=== PATIENT | male | born 1990 | race Caucasian/White ===

== ENCOUNTER 2021-03-31 11:14 | Emergency (ER) | payer BC, SELFPAY ==
[2021-03-31 11:30] VITALS: BP 168/102; PULSE 69; RESP 16; TEMP 37; O2SAT 100
--- NOTE | 2021-03-31 12:09 | ED.DENTAL ---
HPI - Dental/Oral General Source: patient Mode of arrival: ambulatory Limitations: no limitations History of Present Illness HPI Narrative: Patient comes in with complaints of toothache in right upper 12 year molar, tooth #1, which is sharp, moderately severe to severe, ongoing for the past 3 days, and preventing him from resting. He says this is also causing him a great deal of discomfort when he eats. He has eaten only soup today. No fever or chills with this. Complaint: tooth pain Onset (ago): day(s) Duration: constant Severity: severe Relieving factors: other (NSAIDs have not helped significantly) Exacerbating factors: chewing Context: history of dental caries Treatment prior to arrival: oral analgesic Related Data Home Medications Medication Instructions Recorded Confirmed albuterol sulfate 2 puff INHALATION PRN PRN 03/31/21 03/31/21 Allergies Allergy/AdvReac Type Severity Reaction Status Date / Time No Known Allergies Allergy Unverified 07/09/15 19:27 Review of Systems Constitutional: Constitutional: Reports no additional constitutional complaints Eyes: Eyes: Reports no additional eye complaints ENT: Reports system reviewed and no additional complaints, except as documented Cardiovascular: Cardiovascular: Reports no additional cardiovascular complaints Respiratory: Respiratory: Reports no additional respiratory complaints Gastrointestinal: Gastrointestinal: Reports no additional gastrointestinal complaints Genitourinary: Genitourinary: Reports no additional male genitourinary complaints Musculoskeletal: Musculoskeletal: Reports no additional musculoskeletal complaints Integumentary/Breasts: Skin/Breast: Reports system reviewed and no additional complaints, except as docu Neurologic: Reports system reviewed and no additional complaints, except as documented Psychiatric: Psychiatric: Reports no additional psychiatric complaints Endocrine: Endocrine: Reports no additional endocrine complaints Hematologic/Lymphatic: Hematologic/Lymphatic: Reports no additional hematologic/lymphatic complaints Allergic/Immunologic: Allergic/Immunologic: Reports no additional allergic/immunologic complaints [facility] Past Medical History Medical History (Updated 04/01/21 @ 00:00 by Background Dauzair) Asthma Nasal polyps No active medical problems Strabismus Surgical History Surgical History (Updated 03/31/21 @ 23:59 by Sigifredo Snow MD) History of strabismus surgery Family History Family History (Updated 04/01/21 @ 00:01 by Sigifredo Snow MD) Mother No significant family history Father No significant family history Social History Social History (Updated 04/01/21 @ 00:01 by Sigifredo Snow MD) Smoking status: Never smoker Alcohol intake: never Substance use: never Exam Const: General: alert Orientation/consciousness: patient oriented x3 HENMT: Ears: external ears normal and TM's normal bilaterally Face and sinus: normal facial exam Mouth: Yes Normal oral and palatal mucosa present Throat: posterior oropharynx normal Other: He appears to have an abscessed tooth at tooth #1, with a distinct red ring around the base of the tooth. The remainder of his mouth exam is negative. Eyes: Conjunctivae: conjunctivae normal Neck: Neck: normal visual inspection and no lymphadenopathy Chest: Chest palpation & inspection: normal inspection of the chest Resp: Effort & Inspection: normal respiratory effort Auscultation: clear to auscultation bilaterally Cardio: Rate: regular rate Rhythm: regular rhythm GI: GI Palp: Yes Soft to palpation (notender) Back/Spine/Pelvis: Back: no CVA tenderness Skin: General skin exam: normal color Neuro: General: patient oriented x3 and moves all extremities Extrem: General: normal to inspection Psych: Appearance: grossly normal Mental Status: mental status grossly normal Thought content: Yes Normal thought content present Course Cours
[2021-03-31] MEDS: PENICILLIN G BENZATHINE 1,200,000 UNITS/2 ML SYRINGE 1200000 UNITS IM (12:20)
[2021-03-31] MEDS: KETOROLAC (*BKC) 60 MG/2 ML VIAL IM (12:22)
[2021-03-31 12:53] VITALS: BP 152/81; PULSE 60; RESP 16; O2SAT 99
== END 2021-03-31 12:55 | disposition home or self-care (01) ==
PROVIDERS: Emergency Provider Emergency Medicine
DX: K04.7 Periapical abscess without sinus (principal)
CPT/HCPCS: 96372; 99283; 99284; J0561; J1885

== ENCOUNTER 2021-04-02 10:51 | Emergency (ER) | payer BC, SELFPAY ==
--- NOTE | ~2021-04-02 | XR_ITS ---
EXAMINATION: XR chest 2V DATE: 04/02/2021 12:55 INDICATION: Cough, headaches and dizziness TECHNIQUE: PA and lateral views of the chest were obtained. COMPARISON: Chest radiograph dated 04/19/2017 FINDINGS: The lungs are now clear with no focal airspace opacities, pulmonary edema, pleural effusion or pneumo thorax. The cardiomediastinal silhouette is normal. Mild kyphosis at the lower thoracic spine with a chronic minimal anterior wedging of a few lower thoracic vertebral bodies. IMPRESSION: 1. No acute cardiopulmonary disease. Reviewed, dictated and finalized at location A.
[2021-04-02 11:06] VITALS: BP 153/99; PULSE 58; RESP 16; TEMP 36.4; O2SAT 100
--- NOTE | 2021-04-02 12:48 | ED.GENADULT ---
HPI - General Adult General Chief complaint: Headache Stated complaint: headache Time Seen by Provider: 04/02/21 12:11 Source: patient History of Present Illness HPI narrative: Patient is a 30 y/o male complaining of generalized headache starting 2 days ago. He describes his headache as both dull and sharp. He rates his headache as 9/10. There is no known alleviating or exacerbating factor. He also has some cough, subjective fever and vomiting. He was seen at [place] for toothache 2 days ago and given prescription for Penicillin and Hydrocodone. He states that his toothache has improved. He has no neck pain or stiffness. Related Data Home Medications Medication Instructions Recorded Confirmed albuterol sulfate 2 puff INHALATION PRN PRN 03/31/21 03/31/21 Allergies Allergy/AdvReac Type Severity Reaction Status Date / Time No Known Allergies Allergy Unverified 07/09/15 19:27 Review of Systems Constitutional: Constitutional: Denies chills, Reports fever(s), Reports headache(s) and Denies weakness Eyes: Eyes: Denies blurry vision ENT: Reports dental pain, Reports headache(s) and Denies neck pain Cardiovascular: Cardiovascular: Denies chest pain and Denies dyspnea Respiratory: Respiratory: Denies cough and Denies dyspnea Gastrointestinal: Gastrointestinal: Denies abdominal pain, Denies diarrhea, Reports nausea and Reports vomiting Genitourinary: Genitourinary: Denies hematuria and Denies dysuria Musculoskeletal: Musculoskeletal: Denies back pain and Denies neck pain Neurologic: Reports headache(s) and Denies weakness PMFSH Past Medical History Medical History Asthma Nasal polyps No active medical problems Strabismus Surgical History Surgical History History of strabismus surgery Family History Family History Mother No significant family history Father No significant family history Social History Social History Smoking status: Never smoker Alcohol intake: never Substance use: never Exam Const: General: no acute distress and well developed Orientation/consciousness: oriented to person, oriented to place, oriented to time and patient oriented x3 HENMT: Head: normocephalic Ears: external ears normal General nose exam: Normal external nose present Eyes: General: appearance normal, both eyes and all related structures Conjunctivae: conjunctivae normal Neck: Neck: normal visual inspection and full ROM Chest: Chest palpation & inspection: normal inspection of the chest and no tenderness Resp: Effort & Inspection: normal respiratory effort Auscultation: clear to auscultation bilaterally Cardio: Rate: regular rate Rhythm: regular rhythm GI: GI Palp: No abdominal tenderness and Yes Soft to palpation Skin: General skin exam: normal color and turgor normal Neuro: General: oriented to person, oriented to place, oriented to time and patient oriented x3 Cranial nerves: Yes CN's II-XII intact bilaterally Cognition (Neuro): normal cognition Speech: normal speech Motor exam (neuro): 5/5 motor strength present throughout Sensory Exam: normal sensation Coordination: [id number] test normal and [id number] test normal Extrem: General: normal to inspection, full ROM and no pedal edema Psych: Appearance: grossly normal Mental Status: mental status grossly normal Affect: normal affect Course Reevaluation(s) Reevaluation #1: Rechecked. Patient states that she feels better and headache is resolved. Date: 04/02/21 Time: 14:18 Vital Signs Vital signs: Vital Signs Temperature 36.4 C 04/02/21 11:06 Pulse Rate 58 L 04/02/21 11:06 Respiratory Rate 16 04/02/21 11:06 Blood Pressure 153/99 H 04/02/21 11:06 Pulse Oximetry 100 04/02/21 11:06 Temperature 36.4 C 04/02
--- NOTE | 2021-04-02 12:53 | PC.NURSE ---
Was seen in outside ED Sun for dental abscess, given IM PCN and on PO PCN, has had headache since then (bilat frontal, blurred vision, N/V). Denies PCN allergy. Hx migraine a year ago
[2021-04-02 12:59] LABS: Basophils Percent Auto 0.4 % (0.2-1.2); Eosinophils Absolute Auto 0.4 K/mm3 (0-0.3); Eosinophils Percent Auto 3.5 % (0-4.4); Hematocrit 45.7 % (42.0-52.0); Hemoglobin 14.8 g/dL (14.0-18.0); Immature Granulocyte Absolute 0.07 K/mm3 (0.00-0.031); Immature Granulocyte Percent A 0.7 % (0-0.5); Lymphocytes Absolute Auto 2.53 K/mm3 (0.9-3.2); Lymphocytes Percent Auto 23.7 % (18.3-44.2); Mean Corpuscular HGB Conc 32.4 g/dl (32-36); Mean Corpuscular Hemoglobin 29.4 pg (26-34); Mean Corpuscular Volume 90.9 fl (80-100); Mean Platelet Volume 9.6 fl (7.4-10.4); Monocytes Absolute Auto 0.9 K/mm3 (0.1-0.6); Monocytes Percent Auto 8.2 % (2.6-8.5); Neutrophils Absolute Auto 6.8 K/mm3 (1.3-6.7); Neutrophils Percent Auto 63.5 % (45.5-73.1); Platelet Count Result 223 k/mm3 (150-375); Red Blood Count 5.03 M/mm3 (4.6-6.20); White Blood Count 10.7 K/mm3 (4.5-10.0)
[2021-04-02 13:01] VITALS: BP 157/97; PULSE 57; RESP 18; O2SAT 95
[2021-04-02 13:15] LABS: Potassium 4.3 mmol/L (3.4-5.0)
[2021-04-02] MEDS: SODIUM CHLORIDE 0.9% IV 1,000 ML 999 ML IV CONT (13:20)
[2021-04-02 13:21] LABS: Anion Gap 4 mmol/L (8-16); Blood Urea Nitrogen 12 mg/dL (9-20); Calcium 9.4 mg/dL (8.4-10.2); Carbon Dioxide 34 mmol/L (22-30); Chloride 103 mmol/L (98-107); Estimated Glomerular Filt Rate > 60; Glucose 89 mg/dL (75-110); Sodium 141 mmol/L (137-145)
[2021-04-02] MEDS: KETOROLAC 30 MG/ML VIAL (*BKC) IV PUSH (13:42)
[2021-04-02] MEDS: diphenhydrAMINE HCl INJ 50 MG/ML VIAL 25 MG IV PUSH (13:43)
[2021-04-02] MEDS: METOCLOPRAMIDE HCL INJ 10 MG/2 ML VIAL IV PUSH (13:43)
[2021-04-02 14:32] VITALS: PULSE 88; RESP 16
== END 2021-04-02 14:33 | disposition home or self-care (01) ==
PROVIDERS: Emergency Provider Emergency Medicine
DX: R51.9 Headache, unspecified (principal); J45.909 Unspecified asthma, uncomplicated
CPT/HCPCS: 36415; 71046; 80048; 85025; 96361; 96374; 96375; 99284; J1200; J1885; J2765; J7030

== ENCOUNTER 2021-07-31 15:37 | Emergency (ER) | payer BC, SELFPAY ==
[2021-07-31 16:03] VITALS: BP 150/77; PULSE 72; RESP 18; TEMP 36.2; O2SAT 99
== END 2021-07-31 19:00 | disposition left against medical advice (07) ==
LOC: ANHED 22:42
PROVIDERS: Emergency Provider Family Medicine
DX: Z53.21 Procedure and treatment not carried out due to patient leaving prior to being seen by health care provider (principal)
CPT/HCPCS: 99199

== ENCOUNTER 2022-03-01 11:18 | Emergency (ER) | payer BC, SELFPAY ==
[2022-03-01 11:38] VITALS: BP 173/97; PULSE 71; RESP 16; TEMP 36.3; O2SAT 97
--- NOTE | 2022-03-01 11:56 | ED.GENADULT ---
HPI - General Adult General Chief complaint: Unspecified Stated complaint: severe allergies mucus sinus pressure Time Seen by Provider: 03/01/22 11:20 Source: patient, RN notes reviewed and old records reviewed Mode of arrival: ambulatory Limitations: no limitations History of Present Illness Onset (ago): day(s) (2) Location: face Severity: mild Severity scale (1-10): 2 Quality: aching and dull Pain Consistency: constant Relieving factors: medication Exacerbating factors: none Associated symptoms: cough Related Data Home Medications Medication Instructions Recorded Confirmed albuterol sulfate 2 puff INHALATION PRN PRN 03/31/21 03/01/22 Allergies Allergy/AdvReac Type Severity Reaction Status Date / Time No Known Allergies Allergy Unverified 03/01/22 11:36 Review of Systems Review of Systems: All systems reviewed & are unremarkable except as noted in HPI and below PMFSH Past Medical History Medical History Asthma Nasal polyps No active medical problems Sinusitis Strabismus Surgical History Surgical History History of strabismus surgery Family History Family History Mother No significant family history Father No significant family history Social History Social History Smoking status: Never smoker Alcohol intake: never Substance use: never Exam Const: General: cooperative, no acute distress and alert Nutritional Appearance: obese Orientation/consciousness: patient oriented x3 Limitations: no limitations HENMT: Head: normal to inspection, normocephalic and atraumatic Ears: hearing grossly normal bilaterally, external ears normal, TM's normal bilaterally and EAC's normal General nose exam: Normal external nose present and Normal nares present Face and sinus: normal facial exam and sinus tenderness Mouth: Yes Normal oral and palatal mucosa present, Yes lip normal, Yes tongue normal, Yes moist mucous membranes and Yes other (hyperemic pharynx.) Teeth and gingiva: dentition normal and gingiva normal Eyes: General: appearance normal, both eyes and all related structures Visual Seymour: normal visual seymour by confrontation Periorbital: periorbital findings normal Eyelids: eyelids normal Conjunctivae: conjunctivae normal Sclera: sclerae normal Cornea: corneas normal Pupils: Equal, round and reactive pupils present EOM: EOMs intact bilaterally Direct Ophthalmoscopy: normal light reflex Neck: Neck: normal visual inspection, full ROM and no lymphadenopathy Chest: Chest palpation & inspection: normal inspection of the chest Resp: Effort & Inspection: normal respiratory effort and able to speak in complete sentences Auscultation: clear to auscultation bilaterally Cardio: Jugular venous distension: no JVD Rate: regular rate Rhythm: regular rhythm GI: Inspection: normal to inspection GI Palp: No abdominal tenderness Auscultation: normal bowel sounds : General: Yes bladder normal to palpation Back/Spine/Pelvis: Back: no CVA tenderness Cervical Spine: cervical ROM normal Thoracic/Lumbar Spine: thoraco-lumbar ROM normal Skin: General skin exam: normal color, no rashes or lesions noted and turgor normal Neuro: General: patient oriented x3 and gait normal Cranial nerves: Yes CN's II-XII intact bilaterally, Yes Facial sensation intact/muscles of mastication intact, Yes Intact sense of smell present, Yes Equal, round and reactive pupils present, Yes Normal accommodation reflex present and Yes Bilaterally intact EOM present Cognition (Neuro): normal cognition Speech: normal speech Gait exam (Neuro): Normal gait present Motor exam (neuro): 5/5 motor strength present throughout Extrem: General: normal to inspection, full ROM and capillary refill normal Psych: Appear
[2022-03-01] MEDS: guaiFENesin 12 HR 600 MG TABCR PO (12:01)
[2022-03-01 12:11] VITALS: BP 155/82; PULSE 64; RESP 16; O2SAT 97
== END 2022-03-01 12:13 | disposition home or self-care (01) ==
PROVIDERS: Emergency Provider Emergency Medicine
DX: J01.41 Acute recurrent pansinusitis (principal)
CPT/HCPCS: 99283; A9270

== ENCOUNTER 2022-05-22 00:57 | Emergency (ER) | payer BC, SELFPAY ==
--- NOTE | ~2022-05-22 | XR_ITS ---
EXAMINATION: XR chest 2V 05/22/2022 02:43 INDICATION: Chest pain with respiration PROCEDURE: 2 view chest COMPARISON: Comparison to multiple prior studies sequentially, with oldest reviewed study dated 03/06 . FINDINGS: The lungs are clear. The cardiomediastinal silhouette is within normal limits. There are no pleural effusions. There is no pneumothorax suspected. IMPRESSION: 1: NO ACUTE CARDIOPULMONARY DISEASE. Reviewed, dictated and finalized at location A.
[2022-05-22 00:57] VITALS: BP 156/84; PULSE 60; RESP 16; TEMP 35.8; O2SAT 96
--- NOTE | 2022-05-22 01:06 | ED.URI ---
HPI - URI/Sore Throat General Chief Complaint: Upper Respiratory Infection Stated Complaint: allergies Time Seen by Provider: 05/22/22 01:06 Source: patient and RN notes reviewed Mode of arrival: ambulatory Limitations: no limitations History of Present Illness MD elicited complaint: cough, sore throat, nasal congestion and sinus pain Pertinent past history: asthma Onset (ago): week(s) (1) Consistency: constant and progressively worsening Severity: moderate Description of mucous: clear Able to tolerate fluids by mouth: Yes Exacerbating factors: exertion and speaking Relieving factors: nothing Associated symptoms: nasal congestion, sore throat, cough and shortness of breath ( Hurts to take a deep breath) Treatments prior to arrival: cold medicine Related Data Home Medications Medication Instructions Recorded Confirmed albuterol sulfate 90 mcg/actuation 2 puff inhalation PRN PRN Wheezing 03/31/21 05/22/22 aerosol inhaler Allergies Allergy/AdvReac Type Severity Reaction Status Date / Time No Known Allergies Allergy Verified 05/22/22 01:04 Review of Systems Review of Systems: All systems reviewed & are unremarkable except as noted in HPI and below Gastrointestinal: Gastrointestinal: Denies diarrhea, Denies nausea and Denies vomiting PMFSH Past Medical History Medical History Asthma Nasal polyps No active medical problems Sinusitis Strabismus Surgical History Surgical History History of strabismus surgery Family History Family History Mother No significant family history Father No significant family history Social History Social History Smoking status: Never smoker Alcohol intake: never Substance use: never Exam Const: General: healthy appearing, no acute distress and alert Nutritional Appearance: well nourished Orientation/consciousness: patient oriented x3 HENMT: Head: normal to inspection Face and sinus: normal facial exam Eyes: Conjunctivae: conjunctivae normal Pupils: Equal, round and reactive pupils present EOM: EOMs intact bilaterally Neck: Neck: normal visual inspection Resp: Effort & Inspection: normal respiratory effort Auscultation: clear to auscultation bilaterally Cardio: Rate: regular rate Rhythm: regular rhythm GI: GI Palp: Yes Soft to palpation and No Tenderness to palpation present (GI) Auscultation: normal bowel sounds Back/Spine/Pelvis: Cervical Spine: cervical ROM normal Thoracic/Lumbar Spine: thoraco-lumbar ROM normal Skin: General skin exam: normal color Rashes: no rashes Neuro: General: patient oriented x3, moves all extremities, no focal motor deficits and CN's II-XI intact bilaterally Speech: normal speech Gait exam (Neuro): Normal gait present Extrem: General: normal to inspection and no clubbing, cyanosis or edema Psych: Mental Status: mental status grossly normal Affect: normal affect Attitude: cooperative Course Vital Signs Vital signs: Vital Signs Temperature 35.8 C L 05/22/22 00:57 Pulse Rate 60 05/22/22 00:57 Respiratory Rate 16 05/22/22 00:57 Blood Pressure 156/84 H 05/22/22 00:57 Pulse Oximetry 96 05/22/22 00:57 Oxygen Delivery Room Air 05/22/22 00:57 Temperature 35.8 C L 05/22/22 00:57 Pulse Rate 80 05/22/22 03:45 Respiratory Rate 16 05/22/22 03:45 Blood Pressure 152/88 H 05/22/22 03:45 Pulse Oximetry 98 05/22/22 03:45 Oxygen Delivery Room Air 05/22/22 03:45 MDM - URI/Sore Throat Lab Data Attestation: I reviewed the patient's lab results. Result diagrams: 05/22/22 01:15 05/22/22 01:15 Labs: Lab Results 05/22/22 05/22/22 05/22/22 Range/Units 01:15 01:15 01:15 WBC 10.8 (4.8-10.8) K/mm3 RBC 4.92 (4.70-6.10) M/mm3 Hgb
[2022-05-22 01:18] LABS: Basophils Absolute Auto 0.03 K/mm3 (0.00-0.10); Basophils Percent Auto 0.3 % (0.0-1.0); Eosinophils Absolute Auto 0.55 K/mm3 (0.02-0.50); Eosinophils Percent Auto 5.1 % (1.0-6.0); Hematocrit 44.7 % (40.0-54.0); Hemoglobin 14.8 g/dL (14.0-18.0); Immature Granulocyte Absolute 0.04 K/mm3 (0.00-0.00); Immature Granulocyte Percent A 0.4 % (0.0-0.0); Lymphocytes Absolute Auto 2.73 K/mm3 (1.10-4.50); Lymphocytes Percent Auto 25.2 % (18.0-42.0); Mean Corpuscular HGB Conc 33.1 g/dL (32.0-36.0); Mean Corpuscular Hemoglobin 30.1 pg (27.0-31.0); Mean Corpuscular Volume 90.9 fL (78.0-102.0); Mean Platelet Volume 9.9 fl (8.7-11.0); Monocytes Absolute Auto 0.84 K/mm3 (0.10-0.90); Monocytes Percent Auto 7.7 % (2.0-11.0); Neutrophils Absolute Auto 6.7 K/mm3 (1.7-7.2); Neutrophils Percent Auto 61.3 % (50.0-70.0); Platelet Count Result 217 K/mm3 (150-420); Red Blood Count 4.92 M/mm3 (4.70-6.10); Red Cell Distribution Width 13.5 % (11.6-14.4); White Blood Count 10.8 K/mm3 (4.8-10.8)
[2022-05-22 01:34] LABS: Alanine Aminotransferase 61 U/L (16-63); Albumin Level 3.7 g/dL (3.4-5.0); Alkaline Phosphatase 93 U/L (46-116); Anion Gap 8 mmol/L (8-16); Aspartate Amino Transferase 31 U/L (15-37); Blood Urea Nitrogen 12 mg/dL (7-18); CRP 1.8 mg/dL (0.0-0.9); Calcium 8.7 mg/dL (8.5-10.1); Carbon Dioxide 30 mmol/L (21-32); Chloride 104 mmol/L (98-108); Estimated CRCL calculation 133 ml/min; Estimated Glomerular Filt Rate > 60; Glucose 101 mg/dL (70-99); Osmolality Calculated 293 mOsm/kg (285-295); Potassium 3.7 mmol/L (3.5-5.1); Sodium 142 mmol/L (136-145); Total Protein 7.7 g/dL (6.4-8.2)
[2022-05-22 01:53] LABS: Influenza A QL RT-PCR Negative (Negative); Influenza B QL RT-PCR Negative (Negative); SARS-CoV-2 RNA PCR Negative (Negative)
[2022-05-22 02:11] VITALS: BP 155/90; PULSE 59; RESP 18; O2SAT 97
[2022-05-22 03:45] VITALS: BP 152/88; PULSE 80; RESP 16; O2SAT 98
[2022-05-22] MEDS: methylPREDNISolone SOD SUCC 125 MG VIAL IM (03:50)
== END 2022-05-22 03:45 | disposition home or self-care (01) ==
PROVIDERS: Emergency Provider Emergency Medicine
DX: J40 Bronchitis, not specified as acute or chronic (principal); J45.21 Mild intermittent asthma with (acute) exacerbation; Z20.822 Contact with and (suspected) exposure to COVID-19
CPT/HCPCS: 36415; 71046; 73140; 80053; 85025; 86140; 87502; 96372; 99283; C9803; J2930; U0003; U0005

== ENCOUNTER 2023-11-20 14:45 | Emergency (ER) | payer BC, SELFPAY ==
--- NOTE | ~2023-11-20 | XR_ITS ---
EXAMINATION: XR chest 1V portable 11/20/2023 15:20 INDICATION: Cough and wheezing PROCEDURE: AP portable chest COMPARISON: 07/09/2015 FINDINGS: The lungs are clear. The cardiomediastinal silhouette is within normal limits. There are no pleural effusions. There is no pneumothorax suspected. IMPRESSION: 1: NO ACUTE CARDIOPULMONARY DISEASE. Reviewed, dictated and finalized at location A. [employer] WELDER
[2023-11-20 14:45] VITALS: BP 155/90; PULSE 72; RESP 20; TEMP 36.6; O2SAT 98
--- NOTE | 2023-11-20 15:06 | ED.GENADULT ---
HPI - General Adult General Chief complaint: Upper Respiratory Infection Stated complaint: cough x 4wks; ear pain Time Seen by Provider: 11/20/23 14:54 History of Present Illness HPI narrative: Nash is a 33M with a PMH of asthma that presented to the ED with a cough of 4 weeks that is not improving. There is no chest pain, N/V, diarrhea, or dyspnea but he has noticed some fevers. Related Data Home Medications Medication Instructions Recorded Confirmed atorvastatin 20 mg tablet 20 mg PO DAILY 11/20/23 11/20/23 montelukast 10 mg tablet 10 mg PO DAILY 11/20/23 11/20/23 Allergies Allergy/AdvReac Type Severity Reaction Status Date / Time No Known Allergies Allergy Verified 11/20/23 14:58 Review of Systems Review of Systems: All systems reviewed & are unremarkable except as noted in HPI and below PMFSH Past Medical History Medical History Asthma Nasal polyps No active medical problems Sinusitis Strabismus Surgical History Surgical History History of strabismus surgery Family History Family History Mother No significant family history Father No significant family history Social History Social History Smoking status: Never smoker Alcohol intake: never Substance use: never Exam Const: General: cooperative, healthy appearing, comfortable, no acute distress, well developed, alert, awake and Physically active Orientation/consciousness: oriented to person, oriented to place and oriented to time HENMT: Head: normal to inspection, normocephalic and atraumatic Ears: hearing grossly normal bilaterally and external ears normal Face/Nose/Sinus: Normal external nose present Eyes: General: appearance normal, both eyes and all related structures Periorbital: periorbital findings normal Sclera: sclerae normal Pupils: Equal, round and reactive pupils present Neck: Neck: normal visual inspection Chest: Chest palpation & inspection: normal inspection of the chest Resp: Effort & Inspection: normal respiratory effort, able to speak in complete sentences and no respiratory distress Other: Diffuse wheezing with prolonged expiratory phase but good air flow Cardio: Jugular venous distension: no JVD Rate: regular rate Rhythm: regular rhythm GI: Inspection: normal to inspection GI Palp: Yes Soft to palpation Auscultation: normal bowel sounds Skin: General skin exam: normal color and no rashes or lesions noted Neuro: General: oriented to person, oriented to place and oriented to time Cranial nerves: Yes Equal, round and reactive pupils present Extrem: General: normal to inspection Course Course Emergency Course: EXAMINATION: XR chest 1V portable 11/20/2023 15:20 INDICATION: Cough and wheezing PROCEDURE:? AP portable chest COMPARISON: 07/09/2015 FINDINGS: The lungs are clear.? The cardiomediastinal silhouette is within normal limits.? There are no pleural effusions.? There is no pneumothorax suspected.? IMPRESSION: 1:? NO ACUTE CARDIOPULMONARY DISEASE. He was coughing less after the breathing treatment. He has adequate albuterol at home. Vital Signs Vital signs: Vital Signs Temperature 97.9 F 11/20/23 14:45 Pulse Rate 72 11/20/23 14:45 Respiratory Rate 20 11/20/23 14:45 Blood Pressure 155/90 H 11/20/23 14:45 Pulse Oximetry 98 11/20/23 14:45 Oxygen Delivery Room Air 11/20/23 14:45 Temperature 97.9 F 11/20/23 14:45 Pulse Rate 70 11/20/23 16:05 Respiratory Rate 16 11/20/23 16:05 Blood Pressure 162/83 H 11/20/23 16:05 Pulse Oximetry 100 11/20/23 16:05 Oxygen Delivery Room Air 11/20/23 16:05 Medical Decision Making Vital Signs Vital Signs: Vital Signs Temperature 97.9 F 11/20/23 14:45 Pulse Rate 72 11/20/23 14:45 Respirato
[2023-11-20 15:08] VITALS: O2SAT 100
[2023-11-20 15:23] VITALS: PULSE 75; RESP 18
[2023-11-20] MEDS: IPRATROPIUM 0.5 MG/ALBUTEROL SULFATE 2.5 MG AMPUL.NEB 3 ML INHALATION (15:23)
[2023-11-20 15:28] VITALS: PULSE 80; RESP 18
[2023-11-20] MEDS: predniSONE 40 MG, predniSONE 10 MG 50 MG PO (15:33)
[2023-11-20 16:05] VITALS: BP 162/83; PULSE 70; RESP 16; TEMP 36.6; O2SAT 100
== END 2023-11-20 16:05 | disposition home or self-care (01) ==
PROVIDERS: Emergency Provider Family Medicine; PCP Family Medicine
DX: J45.901 Unspecified asthma with (acute) exacerbation (principal)
CPT/HCPCS: 71045; 94640; 99283; J7512

== ENCOUNTER 2023-12-14 14:58 | Emergency (ER) | payer BC, SELFPAY ==
--- NOTE | ~2023-12-14 | CT_ITS ---
EXAMINATION: CT abdomen pelvis wo con DATE: 12/14/2023 15:43 INDICATION: Left flank pain. Hematuria. TECHNIQUE: Computed tomography (CT) of the abdomen and pelvis was performed without intravenous contr ast. Automated exposure control and iterative reconstruction technique were employed. The dose-length product was 991.81 mGy-cm. COMPARISON: None. FINDINGS: The visualized portions of the lung bases demonstrate minimal atelectasis. No pleural effus ion. The heart size is normal. No pericardial effusion. There is diffuse hepatic steatosis. There are gallstones in the gallbladder, which is normal in size. The spleen, pancreas, adrenal glands, and ki dneys are normal. There is no urolithiasis. There is a right inguinal hernia containing fat. There ar e no dilated loops of bowel. The appendix is normal. There are no pathologically enlarged lymph nodes . There is no free intraperitoneal fluid. There is mild chronic anterior wedging of multiple vertebra l bodies. There are bridging endplate osteophytes at multiple levels in the thoracic spine, consisten t with diffuse idiopathic skeletal hyperostosis (DISH). There is moderate lumbar spondylosis. IMPRESSION: 1. No etiology for the patient's symptoms. 2. Diffuse hepatic steatosis. 3. Right inguinal hernia containing fat. Reviewed, dictated and finalized at location E. LIANCE REPRESENTATIVE DEALER
[2023-12-14 14:58] VITALS: BP 162/92; PULSE 63; RESP 16; TEMP 36.9; O2SAT 99
--- NOTE | 2023-12-14 15:27 | ED.MALEGU ---
HPI - Male Genitourinary General Chief complaint: Urogenital-Male Stated complaint: left flank pain and blood in urine Source: patient Mode of arrival: ambulatory Limitations: no limitations History of Present Illness HPI Narrative: 33 year old male presents to the Emergency Department complaining of left flank pain and hematuria. Patient states the left flank pain began 4 days ago and has been intermittent. Sometimes pain becomes excruciating. He began having hematuria today. Patient was seen by PCP and recommended he come to the hospital for CT scan. Unable to obtain OP for a week or so. Patient is currently not having flank pain. He has no history of kidney stones or hematuria. MD Complaint: other (hematuria today and intermittent left flank pain x 4 days) Onset (ago): day(s) (4) Duration: intermittent Location: left flank Severity: severe (at times) Relieving factors: none Exacerbating factors: none Associated symptoms: Reports denies other symptoms Related Data Sexually active: Yes Home Medications Medication Instructions Recorded Confirmed atorvastatin 20 mg tablet 20 mg PO DAILY 11/20/23 12/14/23 montelukast 10 mg tablet 10 mg PO DAILY 11/20/23 12/14/23 budesonide-formoterol HFA 160 2 puff inhalation DAILY 12/14/23 12/14/23 mcg-4.5 mcg/actuation aerosol inhaler (Symbicort) Allergies Allergy/AdvReac Type Severity Reaction Status Date / Time No Known Allergies Allergy Verified 12/14/23 15:14 Review of Systems Review of Systems: All systems reviewed & are unremarkable except as noted in HPI and below Constitutional: Constitutional: Reports as per HPI, Reports no additional constitutional complaints, Denies chills and Denies fever(s) Eyes: Eyes: Reports as per HPI ENT: Reports system reviewed and no additional complaints, except as documented Cardiovascular: Cardiovascular: Reports as per HPI Respiratory: Respiratory: Reports as per HPI and Reports no additional respiratory complaints Gastrointestinal: Gastrointestinal: Reports as per HPI and Reports no additional gastrointestinal complaints Genitourinary: Genitourinary: Reports no additional male genitourinary complaints and Reports hematuria Musculoskeletal: Musculoskeletal: Reports no additional musculoskeletal complaints and Reports back pain Neurologic: Reports system reviewed and no additional complaints, except as documented Psychiatric: Psychiatric: Reports no additional psychiatric complaints Endocrine: Endocrine: Reports no additional endocrine complaints Hematologic/Lymphatic: Hematologic/Lymphatic: Reports no additional hematologic/lymphatic complaints Allergic/Immunologic: Allergic/Immunologic: Reports no additional allergic/immunologic complaints [facility] Past Medical History Medical History Asthma Nasal polyps No active medical problems Sinusitis Strabismus Surgical History Surgical History History of strabismus surgery Family History Family History Mother No significant family history Father No significant family history Social History Social History Smoking status: Never smoker Alcohol intake: never Substance use: never Exam Const: General: healthy appearing Nutritional Appearance: well nourished Limitations: no limitations HENMT: Head: normal to inspection Face/Nose/Sinus: Normal external nose present Face and sinus: normal facial exam Teeth and gingiva: dentition normal Eyes: Conjunctivae: conjunctivae normal Pupils: Equal, round and reactive pupils present EOM: EOMs intact bilaterally Direct Ophthalmoscopy: no photophobia Neck: Neck: normal visual inspection Chest: Chest palpation & inspection: normal inspection of the chest Resp: Effort & Inspection: normal respirat
[2023-12-14 16:08] LABS: Appearance Urine Cloudy (Clear); Bilirubin Urine Negative (Negative); Blood Urine 3+ (Negative); Color Urine Brown (Yellow); Glucose Urine UA Negative (Negative); Ketones Urine Negative (Negative); Leukocyte Esterase Ur Negative (Negative); Nitrate Urine Negative (Negative); Protein Urine 1+ (Negative); Specific Grav Ur >= 1.030 (1.010-1.020); pH Urine 5.5 (5.0-8.0)
--- NOTE | 2023-12-14 16:11 | PC.NURSE ---
PT IS SITTING ON STRETCHER PLAYING A GAME ON HIS PHONE. NAD NOTED. PT DENIES ANY NEEDS OR COMPLAINTS. PT IS AWAITING RESULTS. WILL CONTINUE TO MONITOR.
[2023-12-14 16:12] LABS: Add Urine Microscopic? YES; Bacteria Urine Trace /hpf; RBC Urine >75 /hpf (0-2); WBC Urine None seen /hpf (0-3)
[2023-12-14 16:22] VITALS: BP 148/72; PULSE 60; RESP 18; O2SAT 100
== END 2023-12-14 16:25 | disposition home or self-care (01) ==
PROVIDERS: Emergency Provider Emergency Medicine; PCP Family Medicine
DX: R31.9 Hematuria, unspecified (principal); J45.909 Unspecified asthma, uncomplicated; Z79.899 Other long term (current) drug therapy
CPT/HCPCS: 74176; 81001; 99284

== ENCOUNTER 2025-07-30 11:57 | Emergency (ER) | payer BC, SELFPAY ==
[2025-07-30] VITALS (11 sets, daily range): BP systolic 114–164; BP diastolic 76–84; PULSE 57–72; RESP 16–18; TEMP 36.2; O2SAT 96–100
--- NOTE | ~2025-07-30 | XR_ITS ---
EXAMINATION: XR chest 1V portable, 07/30/2025 12:15 CDT HISTORY: RIGHT SIDE CP X 3 WEEKS COMPARISON: No comparisons available. Technique: Single view. Findings: The lungs are clear, no effusion. No pneumothorax. Heart is normal size. Mediastinal and hilar contours are within normal limits. Bony thorax no acute abnormality. Impression: No acute cardiopulmonary abnormality. Reviewed, dictated and finalized at location A. Impression: No acute cardiopulmonary abnormality.
--- NOTE | 2025-07-30 11:58 | ECG_ITS ---
Test Date: 2025-07-30 12:05:28 Measurements Intervals [place] Rate: 58 P: 12 ND: 177 QRS: 33 QRSD: 89 T: 120 QT: 408 QTc: 402 Interpretive Statements SINUS BRADYCARDIA MODERATE T-WAVE ABNORMALITY, CONSIDER LATERAL ISCHEMIA [-0.1+ mV T-WAVE IN I/aVL/V5/V6] No previous ECG available for comparison Electronically Signed On 07-30-2025 16:07:40 CDT by Dwayne Wellington M.D.
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
--- OUTSIDE RECORDS SUMMARY | 2025-07-30 12:00 | XMS_ITS | Encounter Summary ---
Author Organization [facility] Address [address] [place] [address] Care Team Providers Care Education Teacher Name Role Phone Non-Staff, Provider Primary Care Provider Eren Hernandez MD Primary Care Provider [phone] Encounter Details Date Type Department Care Team (Late st Contact Info) Description 04/30/2019 Abstract SFL CONVERSION [address] [place] [address] , Generic Conversion, Social History Tobacco Use Types Packs/Day Years Used Date Smoking Tobacco: Never Assessed Sex and Gender Information Value Date Recorded Sex Assigned at Not on file 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 Gender Identity Male 05/19/2025 1:03 PM CDT Sexual Orientation Straight 05/19/2025 1: 03 PM CDT documented as of this encounter Plan of Treatment Not on file documented as of this encounter Visit Diagnoses Not on filedocumented in this encounter Additional Health Concerns Infection Onset Date Last Indicated Resolved Time COVID-19 Rule Out 09/10/2020 09/10/2020 09/11/2020 4:20 PM CDT documented as of this encounter Care Teams Education Teacher Relationship Specialty Start Date End Date Non-Staff, Provider PCP - General OTOLARYNGOLOGY 09/10/20 12/07/22 Eren Pulido MD [address] [place] [phone] PCP - General FAMILY PRACTICE 12/08/22 documented as of this encounter
--- OUTSIDE RECORDS SUMMARY | 2025-07-30 12:00 | XMS_ITS | Patient Health Record ---
Author Organization [facility], Address [address] [place] [address] Care Team Providers Care Die Sinker Name Role Phone Baldemar Fulton Unavailable [phone] ALLERGIES No Known Allergies REASON FOR REFERRAL No Information MEDICATIONS Medication SIG (Take, Route, Fr equency, Duration) Notes Start Date End Date Status Medrol (Hilario) 4mg as directed on the p ackage orally as directed on the package 08/30/2021 Activ e Inhaler Companions A ctive Allergy Active PLAN OF TREATMENT No Information Insurance Providers Payer Name Payer Address Payer Phone Subscriber Number Group Number Insured Name Patient Relationship to Insured Coverage Start Date Coverage End Date Lien [id number] Jorge Prince Self - patient is the insured MEDICAL (GENERAL) HISTORY Surgical History Surgery Date(Month/Year) Eye surgery Sinus surgery
--- NOTE | 2025-07-30 12:15 | ED.GENADULT ---
HPI - General Adult General Chief complaint: Chest Pain Stated complaint: chest pain History of Present Illness HPI narrative: Nash is a previously healthy 35M that presented to the ED with right sided chest pain for 3 days. It started while he was watering plants while at work at [employer]. It is a sharp left sided stabbing pain worse with inspiration. No lightheadedness, vomiting or dyspnea. Related Data Home Medications ?Medication ?Instructions ?Recorded ?Confirmed ?Last Taken ?Type budesonide-formoterol HFA 160 2 puff inhalation DAILY 12/14/23 12/14/23 Unknown History mcg-4.5 mcg/actuation aerosol inhaler (Symbicort) Allergies Allergy/AdvReac Type Severity Reaction Status Date / Time bee venom protein (honey bee) Allergy Intermediate Anaphylaxis Verified 07/30/25 12:36 Review of Systems Review of Systems: All systems reviewed & are unremarkable except as noted in HPI and below PMFSH Past Medical History Medical History Sinusitis Nasal polyps Strabismus Asthma No active medical problems Surgical History Surgical History History of strabismus surgery Family History Family History Mother No significant family history Father No significant family history Social History Social History Smoking status: Never smoker Alcohol intake: never Substance use: never Exam Const: General: cooperative, healthy appearing, comfortable, no acute distress, well developed, alert, awake and Physically active Orientation/consciousness: oriented to person, oriented to place and oriented to time HENMT: Head: normal to inspection, normocephalic and atraumatic Ears: hearing grossly normal bilaterally and external ears normal Face/Nose/Sinus: Normal external nose present Eyes: General: appearance normal, both eyes and all related structures Periorbital: periorbital findings normal Sclera: sclerae normal Pupils: Equal, round and reactive pupils present Neck: Neck: normal visual inspection Chest: Chest palpation & inspection: normal inspection of the chest Other: Right anterior chest TTP Resp: Effort & Inspection: normal respiratory effort, able to speak in complete sentences and no respiratory distress Auscultation: clear to auscultation bilaterally Cardio: Jugular venous distension: no JVD Rate: regular rate Rhythm: regular rhythm Skin: General skin exam: normal color and no rashes or lesions noted Neuro: General: oriented to person, oriented to place and oriented to time Cranial nerves: Yes Equal, round and reactive pupils present Extrem: General: normal to inspection Course Course Emergency Course: EKG showed NSR with a rate of 58, and nonspecific T wave abnormalities in the lateral leads but no ST elevation/depression Labs largely unremarkable. As CP has been present for 3 days but troponin is normal it is unlikely to be cardiac. EXAMINATION: XR chest 1V portable, 07/30/2025 12:15 CDT HISTORY: RIGHT SIDE CP X 3 WEEKS COMPARISON: No comparisons available. Technique: Single view. Findings: The lungs are clear, no effusion. No pneumothorax. Heart is normal size. Mediastinal and hilar contours are within normal limits. Bony thorax no acute abnormality. Impression: No acute cardiopulmonary abnormality. Vital Signs Vital signs: Vital Signs Temperature 97.1 F L 07/30/25 11:57 Pulse Rate 64 07/30/25 11:57 Respiratory Rate 16 07/30/25 11:57 Blood Pressure 158/83 H 07/30/25 11:57 Pulse Oximetry 97 07/30/25 11:57 Oxygen Delivery Room Air 07/30/25 11:57 Temperature 97.1 F L 07/30/25 11:57 Pulse Rate 64 07/30/25 11:57 Respiratory Rate 16 07/30/25 11:57 Blood Pressure 158/83 H 07/30/25 11:57 Pulse Oximetry 97 07/30/25 11:57 Oxygen Delivery Room Air 07/30/25 11:57 Medical Decision Making Vital Signs Vital Signs: Vital Signs Temperature 97.1 F L 07/30/25 11:57 Pulse Rate 64 07/30/25 11:57 Respiratory Rate 16 07/30/25 11:57 Blood Pressure 158/83 H 07/30/25 11:57 Pulse Oximetry 97 07/30/25 11:57 Oxygen Delivery Room Air 07/30/25 11:57 Temperature 97.1 F L 07/30/25 11:57 Pulse Rate 64 07/30/25 11:57 Respiratory Rate 16 07/30/25 11:57 Blood Pressure 158/83 H 07/30/25 11:57 Pulse Oximetry 97 07/30/25 11:57 Oxygen Delivery Room Air 07/30/25 11:57 Discharge Plan Discharge Clinical Impression: Acute costochondritis Patient Disposition: Home Condition: Stable Instructions: Costochondritis (ED) Patient Language: Pashto Prescriptions: New meloxicam 7.5 mg tablet 7.5 mg PO DAILY Qty: 10 0RF No Action budesonide-formoterol [Symbicort] 160-4.5 mcg/actuation HFA aerosol inhaler 2 puff INHALATION DAILY Follow-up/Referrals: Jaylan Xavier MD [Physician, Internal Medicine]
[2025-07-30 12:23] LABS: Hematocrit 42.4 % (40.0-54.0); Hemoglobin 13.5 g/dL (14.0-18.0); Immature Granulocyte Percent A 0.7 % (0.0-0.0); Lymphocytes Absolute Auto 2.52 K/mm3 (1.10-4.50); Mean Corpuscular HGB Conc 31.8 g/dL (32-36); Mean Corpuscular Hemoglobin 29.1 pg (27.0-31.0); Mean Corpuscular Volume 91.4 fL (78.0-102.0); Nucleated Red Blood Cells Absolute Auto 0.00 K/mm3 (0.00-0.00); Nucleated Red Blood Cells Perc 0.0 % (0-0.0); Platelet Count Result 220 K/mm3 (150-420); Red Blood Count 4.64 M/mm3 (4.70-6.10); White Blood Count 9.6 K/mm3 (4.8-10.8)
[2025-07-30] MEDS: ASPIRIN 81 MG CHEWABLE TABLET 324 MG PO (12:30)
[2025-07-30 12:32] LABS: Anion Gap 9 mmol/L (4-12); Blood Urea Nitrogen 9 mg/dL (9-20); Calcium 9.4 mg/dL (8.4-10.2); Carbon Dioxide 33 mmol/L (22-30); Chloride 100 mmol/L (98-107); Estimated CRCL calculation 167 ml/min; Estimated Glomerular Filt Rate > 60; Glucose 309 mg/dL (65-110); Lipase 67 U/L (23-300); Osmolality Calculated 304 mOsm/kg (285-295); Potassium 4.4 mmol/L (3.4-5.0); Sodium 142 mmol/L (137-145)
[2025-07-30 12:33] LABS: INR 1.0; Prothrombin Time 10.9 Seconds (9.50-12.1)
--- OUTSIDE RECORDS SUMMARY | 2025-07-30 12:37 | XMS_ITS | Clinical Summary ---
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 [address] DATE: 05/19/2025 4:01 PM INDICATION: Low back [...] Procedure Note Qasim Friend MD - 05/19/[address] [place] [address] DATE: 05/19/2025 4:01 PM INDICATION: Low back [...] COLOR (U) YELLOW 05/19/2025 4:02 PM CDT [facility] TRANSPARENCY SLIGHTLY CLOUDY 05/19/2025 4:02 PM CDT [facility] SPECIFIC GRAVITY (U) 1.030(H) 1.000 - 1.025 05/19/2025 4:02 PM CDT [facility] Comment:EQUAL TO OR GREATER THAN U PH 5.5 5.0 - 8.0 05/19/2025 4:02 PM CDT [facility] LEUKOCYTES (U) NEGATIVE NEGATIVE 05/19/2025 4:02 PM CDT [facility] NITRITES NEGATIVE NEGATIVE 05/19/2025 4:02 PM CDT [facility] PROTEIN RANDOM (U) 1+(A) NEGATIVE 05/19/2025 4:02 PM CDT [facility] GLUCOSE (U) TRACE(A) NEGATIVE 05/19/2025 4:02 PM CDT [facility] KETONES MG/DL (U) NEGATIVE NEGATIVE 05/19/2025 4:02 PM CDT [facility] UROBILINOGEN 1.0(H) <1.0 EU/DL 05/19/2025 4:02 PM CDT [facility] BILIRUBIN (U) NEGATIVE NEGATIVE 05/19/2025 4:02 PM CDT [facility] BLOOD (U) NEGATIVE NEGATIVE 05/19/2025 4:02 PM CDT [facility] WBC/HPF 0-5 0 - 5 /HPF 05/19/2025 4:02 PM CDT [facility] BACTERIA (U) 1+ /HPF 05/19/2025 4:02 PM CDT [facility] MUCUS PRESENT 05/19/2025 4:02 PM CDT [facility] OTHER CASTS (U) HYALINE /LPF 4:02 PM CDT [facility] Comment:20-50 URINE SPECIMEN OBTAINED BY CLEAN CATCH PROCEDURE / Unknown 05/19/2025 3:45 PM CDT Solitario Urena DO URINE ORDERABLES Final Result [facility] [address] [place] [address], from Last 3 Months Insurance [facility] C/O PROVIDER SERVICES HERMINIO GARY [id number] [employer] Advance Directives Documents on File Type Date Recorded Patient Circulating Nurse Expl anation Legal Documents 09/03/2021 6:20 AM RECVD & CMPLTD ATTY REQ. FOR HB BILLS FOR SFL FOR AUNDREA LAW Care Teams Instrumentation And Controls Designer Relationship Specialty Start Date End Date Eren Pulido MD [address] [place] [phone] PCP - General FAMILY PRACTICE 12/08/22
--- OUTSIDE RECORDS SUMMARY | 2025-07-30 12:37 | XMS_ITS | Encounter Summary ---
Author Organization [facility] - [facility] Address [address] [place] [address] Care Team Providers Care Furniture Detailer Name Role Phone Non-Staff, Provider Primary Care Provider Eren Hernandez MD Primary Care Provider Encounter Details Date Type Department Care Team (Late st Contact Info) Description 04/30/2019 Abstract SFL CONVERSION [address] [place] [address] , Generic Conversion, Social History Tobacco Use Types Packs/Day Years Used Date Smoking Tobacco: Never Assessed Sex and Gender Information Value Date Recorded Sex Assigned at Not on file 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
[2025-07-30 12:44] LABS: Troponin I < 0.012 ng/mL (0.000-0.034)
== END 2025-07-30 13:00 | disposition home or self-care (01) ==
PROVIDERS: Emergency Provider Family Medicine; PCP Registered Nurse
DX: M94.0 Chondrocostal junction syndrome [Tietze] (principal)
CPT/HCPCS: 36415; 71045; 80048; 83690; 84484; 85025; 85610; 93005; 99284; A9270

== ENCOUNTER 2025-08-05 20:49 | Emergency (ER) | payer BC, SELFPAY ==
--- NOTE | ~2025-08-05 | XR_ITS ---
EXAMINATION: XR chest 1V portable COMPARISON: No comparisons available. HISTORY: CHEST CONGESTION, ASTHMA FINDINGS: The lungs are clear, no effusion. No pneumothorax. Heart is normal size. Mediastinal and hilar contours are within normal limits. Bony thorax no acute abnormality. Miscellaneous: None Impression: No acute cardiopulmonary abnormality. Reviewed, dictated and finalized at location A. Impression: No acute cardiopulmonary abnormality.
[2025-08-05 20:49] VITALS: BP 165/63; PULSE 72; RESP 18; TEMP 36.5; O2SAT 96
--- OUTSIDE RECORDS SUMMARY | 2025-08-05 20:51 | XMS_ITS | Encounter Summary ---
Author Organization [facility] - [facility] Address [address] [place] [address] Care Team Providers Care Mold Shifter Name Role Phone Non-Staff, Provider Primary Care Provider Eren Hernandez MD Primary Care Provider Encounter Details Date Type Department Care Team (Late st Contact Info) Description 04/30/2019 Abstract SFL CONVERSION [address] [place] [address] , Generic Conversion, Social History Tobacco Use Types Packs/Day Years Used Date Smoking Tobacco: Never Assessed Sex and Gender Information Value Date Recorded Sex Assigned at Not on file Legal Sex Male 5:[address] Gender Identity Male 05/19/2025 1:03 PM CDT [...] documented as of this encounter Care Teams Mold Shifter Relationship Specialty Start Date End Date Non-Staff, Provider PCP - General OTOLARYNGOLOGY 09/10/20 12/07/22 Eren Pulido MD [address] [place] [phone] PCP - General FAMILY PRACTICE 12/08/22 documented as of this encounter
--- OUTSIDE RECORDS SUMMARY | 2025-08-05 20:51 | XMS_ITS | Clinical Summary ---
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 [address] DATE: 05/19/2025 4:01 PM INDICATION: Low back [...] Procedure Note Qasim Friend MD - 05/19/[address] [place] [address] DATE: 05/19/2025 4:01 PM INDICATION: Low back [...] COLOR (U) YELLOW 05/19/2025 4:02 PM CDT [facility] TRANSPARENCY SLIGHTLY CLOUDY 05/19/2025 4:02 PM CDT [facility] SPECIFIC GRAVITY (U) 1.030(H) 1.000 - 1.025 05/19/2025 4:02 PM CDT [facility] Comment:EQUAL TO OR GREATER THAN U PH 5.5 5.0 - 8.0 05/19/2025 4:02 PM CDT [facility] LEUKOCYTES (U) NEGATIVE NEGATIVE 05/19/2025 4:02 PM CDT [facility] NITRITES NEGATIVE NEGATIVE 05/19/2025 4:02 PM CDT [facility] PROTEIN RANDOM (U) 1+(A) NEGATIVE 05/19/2025 4:02 PM CDT [facility] GLUCOSE (U) TRACE(A) NEGATIVE 05/19/2025 4:02 PM CDT [facility] KETONES MG/DL (U) NEGATIVE NEGATIVE 05/19/2025 4:02 PM CDT [facility] UROBILINOGEN 1.0(H) <1.0 EU/DL 05/19/2025 4:02 PM CDT [facility] BILIRUBIN (U) NEGATIVE NEGATIVE 05/19/2025 4:02 PM CDT [facility] BLOOD (U) NEGATIVE NEGATIVE 05/19/2025 4:02 PM CDT [facility] WBC/HPF 0-5 0 - 5 /HPF 05/19/2025 4:02 PM CDT [facility] BACTERIA (U) 1+ /HPF 05/19/2025 4:02 PM CDT [facility] MUCUS PRESENT 05/19/2025 4:02 PM CDT [facility] OTHER CASTS (U) HYALINE /LPF 4:02 PM CDT [facility] Comment:20-50 URINE SPECIMEN OBTAINED BY CLEAN CATCH PROCEDURE / Unknown 05/19/2025 3:45 PM CDT Solitario Urena DO URINE ORDERABLES Final Result [facility] [address] [place] [address], from Last 3 Months Insurance [facility] C/O PROVIDER SERVICES HERMINIO GARY [id number] [employer] Advance Directives Documents on File Type Date Recorded Patient Transition Program Manager Expl anation Legal Documents 09/03/2021 6:20 AM RECVD & CMPLTD ATTY REQ. FOR HB BILLS FOR SFL FOR [employer] Care Teams Sluice Tender Relationship Specialty Start Date End Date Eren Pulido MD [address] [place] [phone] PCP - General FAMILY PRACTICE 12/08/22
--- OUTSIDE RECORDS SUMMARY | 2025-08-05 20:51 | XMS_ITS | Patient Health Record ---
Author Organization [facility], Address [address] [place] [address] Care Team Providers Care Electroneurodiagnostic Technologist Name Role Phone Baldemar Fulton Unavailable [phone] ALLERGIES No Known Allergies REASON FOR REFERRAL [...] Coverage Start Date Coverage End Date Lien [id number] Jorge Prince Self - patient is the insured MEDICAL (GENERAL) HISTORY Surgical History Surgery Date(Month/Year) Eye surgery Sinus surgery
--- NOTE | 2025-08-05 21:00 | PC.NURSE ---
SPOKE WITH DANO MOREAU TO PLACE ORDERS FOR COVID SWAB AND CXR
--- NOTE | 2025-08-05 21:03 | ED_ITS ---
HPI - URI/Sore Throat General Chief Complaint: Upper Respiratory Infection Stated Complaint: URI Time Seen by Provider: 08/05/25 21:03 Source: patient and family Mode of arrival: ambulatory Limitations: no limitations History of Present Illness HPI Narrative: Patient is a 35-year-old male with few days of shortness of breath and cough for the past day. He has asthma. Chest congestion. MD elicited complaint: cough and nasal congestion Pertinent past history: asthma Onset (ago): day(s) (2-3) Consistency: constant Severity: moderate Pain scale (0-10): 5 Description of mucous: clear Able to tolerate fluids by mouth: Yes Exacerbating factors: nothing Relieving factors: nothing Context: other (Similar symptoms in the past with asthma exacerbation) Associated symptoms: nasal congestion, cough and shortness of breath Treatments prior to arrival: other (Neb treatment) Related Data Home Medications ?Medication ?Instructions ?Recorded ?Confirmed ?Last Taken ?Type budesonide-formoterol HFA 160 2 puff inhalation DAILY 12/14/23 12/14/23 Unknown History mcg-4.5 mcg/actuation aerosol inhaler (Symbicort) Allergies Allergy/AdvReac Type Severity Reaction Status Date / Time bee venom protein (honey bee) Allergy Intermediate Anaphylaxis Verified 08/05/25 20:49 Review of Systems Review of Systems: All systems reviewed & are unremarkable except as noted in HPI and below Constitutional: Constitutional: Reports no additional constitutional complaints Eyes: Eyes: Reports no additional eye complaints ENT: Reports system reviewed and no additional complaints, except as documen hellen Cardiovascular: Cardiovascular: Reports no additional cardiovascular complaints Respiratory: Respiratory: Reports no additional respiratory complaints Gastrointestinal: Gastrointestinal: Reports no additional gastrointestinal complaints Genitourinary: Genitourinary: Reports no additional male genitourinary complaints Musculoskeletal: Musculoskeletal: Reports no additional musculoskeletal complaints Integumentary/Breasts: Skin/Breast: Reports system reviewed and no additional complaints, except as docu Neurologic: Reports system reviewed and no additional complaints, except as documented Psychiatric: Psychiatric: Reports no additional psychiatric complaints Endocrine: Endocrine: Reports no additional endocrine complaints Hematologic/Lymphatic: Hematologic/Lymphatic: Reports no additional hematologic/lymphatic complaints Allergic/Immunologic: Allergic/Immunologic: Reports no additional allergic/immunologic complaints PMFSH Past Medical History Medical History Sinusitis Nasal polyps Strabismus Asthma No active medical problems Surgical History Surgical History History of strabismus surgery Family History Family History Mother No significant family history Father No significant family history Social History Social History Smoking status: Never smoker Alcohol intake: never Substance use: never Exam Const: General: healthy appearing Nutritional Appearance: well nourished Orientation/consciousness: patient oriented x3 HENMT: Head: normal to inspection Ears: external ears normal Face/Nose/Sinus: Normal external nose present Eyes: Conjunctivae: conjunctivae normal Pupils: Equal, round and reactive pupils present EOM: EOMs intact bilaterally Neck: Neck: normal visual inspection Chest: Chest palpation & inspection: normal inspection of the chest Resp: Effort & Inspection: normal respiratory effort, not labored, no retractions, tachypneic and no use of accessory muscles Auscultation: clear to auscultation bilaterally, no crackles, no rales, rhonchi, no wheezes, breath sounds present and diminished lung sounds Cardio: Rate: regular rate Rhythm: regular rhythm Heart sounds: no murmurs GI: Inspection: non-distended GI Palp: Yes Soft to palpation and No Tenderness to palpation present (GI) Auscultation: normal bowel sounds : General: Yes bladder normal to palpation Back/Spine/Pelvis: Back: no CVA tenderness Skin: General skin exam: normal color Rashes: no rashes Wounds: no wounds Neuro: General: patient oriented x3, moves all extremities and no meningeal signs Extrem: General: normal to inspection Psych: Mental Status: mental status grossly normal Affect: normal affect Attitude: cooperative Course Vital Signs Vital signs: Vital Signs Temperature 36.5 C 08/05/25 20:49 Pulse Rate 72 08/05/25 20:49 Respiratory Rate 18 08/05/25 20:49 Pulse Oximetry 96 08/05/25 20:49 Oxygen Delivery Room Air 08/05/25 20:49 Temperature 36.5 C 08/05/25 20:49 Pulse Rate 72 08/05/25 20:49 Respiratory Rate 18 08/05/25 20:49 Pulse Oximetry 96 08/05/25 20:49 Oxygen Delivery Room Air 08/05/25 20:49 MDM - URI/Sore Throat MDM Narrative Medical decision making narrative: Patient is a 35-year-old male with asthma exacerbation. Updraft treatment. Steroids. DC with antibiotics and steroids. Lab Data Attestation: I reviewed the patient's lab results. Labs: Lab Results 08/05/25 Range/Units 21:02 Influenza A (RT-PCR) Negative (Negative) Influenza B (RT-PCR) Negative (Negative) RSV (RT-PCR) Negative (Negative) SARS-CoV-2 RNA (RT-PCR) Negative (Negative) Imaging Data Attestation: I personally reviewed and interpreted this imaging study as follows: Radiologist's impression: Chest x-ray is negative for acute process pending final reading Discharge Plan Discharge Clinical Impression: Asthma exacerbation Qualifiers: Asthma severity: moderate Asthma persistence: unspecified Qualified Code(s): J45.901 - Unspecified asthma with (acute) exacerbation Patient Disposition: Home Condition: Stable Instructions: Antibiotic Form, Asthma (DC) Patient Language: Barbadian Prescriptions: New methylprednisolone [Medrol (Hilario)] 4 mg tablets,dose pack See Rx Instructions .ROUTE .COMPLEX Qty: 21 0RF Rx Instructions: orally per package directions azithromycin 500 mg tablet See Rx Instructions .ROUTE .COMPLEX Qty: 3 0RF Rx Instructions: For 500 mg dose pack: take 500 mg once daily for 3 days albuterol sulfate [Ventolin HFA] 90 mcg/actuation HFA aerosol inhaler 2 inh inhalation QID PRN (Reason: shortness of breath or wheezing) Qty: 6.7 0RF No Action budesonide-formoterol [Symbicort] 160-4.5 mcg/actuation HFA aerosol inhaler 2 puff INHALATION DAILY meloxicam 7.5 mg tablet 7.5 mg PO DAILY Qty: 10 0RF Follow-up/Referrals: Darin,ROBEL Tyler [Primary Care Provider, Unknown] Time of Disposition: 22:20
--- NOTE | 2025-08-05 21:03 | PC.NURSE ---
XRAY AT THE BEDSIDE
--- NOTE | 2025-08-05 21:03 | PC.NURSE ---
covid swab sent to lab
--- NOTE | 2025-08-05 21:04 | PC.NURSE ---
LAB WAS NOTIFIED THAT SWAB WAS TAKEN DOWN AND DROPPED OFF
[2025-08-05] MEDS: IPRATROPIUM 0.5 MG/ALBUTEROL SULFATE 2.5 MG AMPUL.NEB 3 ML INHALATION (21:14)
--- NOTE | 2025-08-05 21:29 | PC.NURSE ---
PATIENT AMBULATED TO THE BATHROOM AND BACK TO ROOM. WOB NON LABORED. WATER WAS GIVEN TO DRINK. REPORTS BREATHING FEELS BETTER AFTER NEB TREATMENT. CALL LIGHT IN REACH
--- OUTSIDE RECORDS SUMMARY | 2025-08-05 21:36 | XMS_ITS | Encounter Summary ---
Author Organization [facility] Address [address] [place] [address] Care Team Providers Care Commercial Lines Account Executive Name Role Phone Non-Staff, Provider Primary Care Provider Eren Hernandez MD Primary Care Provider Encounter Details Date Type Department Care Team (Late st Contact Info) Description 04/30/2019 Abstract SFL CONVERSION [address] [place] [address] , Generic Conversion, Social History Tobacco Use Types Packs/Day Years Used Date Smoking Tobacco: Never Assessed Sex and Gender Information Value Date Recorded Sex Assigned at Not on file 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
[2025-08-05 21:46] LABS: Influenza A QL RT-PCR Negative (Negative); Influenza B QL RT-PCR Negative (Negative); RSV RNA, RT-PCR Negative (Negative); SARS-CoV-2 RNA PCR Negative (Negative)
[2025-08-05] MEDS: ALBUTEROL SULFATE NEB 2.5 MG/3 ML INH INHALATION (21:57)
--- NOTE | 2025-08-05 22:08 | PC.NURSE ---
REPORTS THAT HE IS FEELING BETTER AFTER BREATHING TREATMENT.
[2025-08-05 22:33] VITALS: BP 170/86; PULSE 96; RESP 22; O2SAT 96
== END 2025-08-05 22:33 | disposition home or self-care (01) ==
PROVIDERS: Emergency Provider Emergency Medicine; PCP Registered Nurse
DX: J45.901 Unspecified asthma with (acute) exacerbation (principal); Z20.822 Contact with and (suspected) exposure to COVID-19
CPT/HCPCS: 71045; 87637; 96372; 99283; J2919